=== PATIENT | female | born 1975 | race Asian ===

== ENCOUNTER → 2020-08-06 14:18 | Outpatient (CLI) | payer OTHER, SELFPAY ==
[2020-08-06 15:45] LABS: Free T4, Direct Thyroxine 1.85 ng/dL (0.78-2.19)
[2020-08-06 16:00] LABS: Thyroid Stimulating Hormone < 0.015 uIU/mL (0.47-4.68)
[2020-08-12 02:00] LABS: Thyroglobulin Level <2.0 ng/mL (.)
== END ==
PROVIDERS: PCP Family Medicine; Referring Provider Family Medicine; Visit Provider Family Medicine
DX: C73 Malignant neoplasm of thyroid gland (principal); E03.9 Hypothyroidism, unspecified
CPT/HCPCS: 36415; 84432; 84439; 84443

== ENCOUNTER → 2021-05-21 08:00 | Outpatient (CLI) | payer OTHER, SELFPAY ==
--- NOTE | 2021-05-21 08:01 | DI.US.S_ITS ---
PROCEDURE: US THYROID INDICATIONS: THYROID TECHNIQUE: Real-time scanning was performed of the thyroid gland, with image documentation. COMPARISON: Outside Facility, [facility], US THYROID/NECK, 07/22/2019, 8:31. FINDINGS: Prior total thyroidectomy. No residual thyroid or tumoral recurrence seen within the thyroid beds bilaterally. There are bilateral morphologically normal appearing lymph nodes in the right and left neck, largest measuring up to roughly 6 mm. IMPRESSION: 1. No residual thyroid or tumoral recurrence seen within the thyroid beds bilaterally. 2. Normal lymph nodes appearing similar to prior report. Dictated by: Olu Guzman [facility] Interpreted: Krzysztof Perez MD on 05/21/2021 at 9:50 Transcribed by: DANA on 05/21/2021 at 9:53 Approved by: Krzysztof Perez M.D. on 05/21/2021 at 10:39
== END ==
PROVIDERS: PCP Family Medicine; Referring Provider Family Medicine; Visit Provider Family Medicine
DX: C73 Malignant neoplasm of thyroid gland (principal)
CPT/HCPCS: 76536

== ENCOUNTER → 2021-05-28 11:38 | Outpatient (CLI) | payer OTHER, SELFPAY ==
[2021-05-28 12:24] LABS: Alanine Aminotransferase 32 IU/L (<35); Albumin 4.6 g/dL (3.5-5.0); Albumin Globulin Ratio 1.5 (1.0-2.8); Alkaline Phosphatase 61 U/L (38-126); Aspartate Aminotransferase 35 IU/L (14-36); Bilirubin Total 0.5 mg/dL (0.2-1.3); Blood Urea Nitrogen 11 mg/dL (7-17); Calcium 9.6 mg/dL (8.4-10.2); Carbon Dioxide 28 mmol/L (22-32); Chloride 105 mmol/L (98-107); Estimated Glomerular Filt Rate > 60.0 mL/min (>60); Glucose 95 mg/dL (70-100); HEMOLYSIS 15 (0-50); Potassium 4.5 mmol/L (3.4-5.1); Sodium 140 mmol/L (137-145); Total Protein 7.6 g/dL (6.3-8.2)
[2021-05-28 12:42] LABS: Free T4, Direct Thyroxine 0.98 ng/dL (0.78-2.19)
[2021-05-28 12:56] LABS: Thyroid Stimulating Hormone 0.076 uIU/mL (0.47-4.68)
== END ==
PROVIDERS: PCP Family Medicine; Referring Provider Family Medicine; Visit Provider Family Medicine
DX: E03.9 Hypothyroidism, unspecified (principal)
CPT/HCPCS: 36415; 80053; 84439; 84443

== ENCOUNTER → 2021-12-09 14:50 | Outpatient (CLI) | payer OTHER, SELFPAY ==
[2021-12-09 17:04] LABS: COVID19 -Nasal RAPID Negative (Negative)
== END ==
PROVIDERS: PCP Family Medicine; Visit Provider Obstetrics & Gynecology
DX: Z01.812 Encounter for preprocedural laboratory examination (principal); Z20.822 Contact with and (suspected) exposure to COVID-19
CPT/HCPCS: 87635

== ENCOUNTER 2021-12-10 14:12 | Day surgery (SDC) | payer OTHER, SELFPAY ==
[2021-12-06 08:31] VITALS: BMI 25.2
[2021-12-10 15:03] VITALS: BP 130/90; PULSE 47; RESP 20; TEMP 36.9; O2SAT 100; BMI 25.2
[2021-12-10] MEDS: LACTATED RINGERS 1,000 ML 42 ML IV (15:21)
--- NOTE | 2021-12-10 16:29 | PM.PREOP ---
Pre-operative Note COVID-19 COVID-19 status: Negative Result date/Date tested (Pos, Neg/Pending): 12/09/21 Criteria for continued procedure: Non-surgical alternatives not available or appropriate per current SOC Interval Note History & Physical reviewed/Exam performed by Physician: Yes Changes to H&P: No
--- NOTE | 2021-12-10 17:27 | SUR.OPER ---
Lithotomy on padded OR bed, head on pillow, arms secured on padded arm boards at <90 degrees abduction. Legs secured in padded yellow fins stirrups.
[2021-12-10 18:21] VITALS: BP 131/48; PULSE 83; RESP 16; O2SAT 100
--- NOTE | 2021-12-10 18:23 | P.OP_ITS ---
Operative Date/Time/Diagnoses Date of procedure: 12/10/21 Time of procedure: 18:24 Pre-op diagnosis: retained Mirena IUD Post-op diagnosis: same Procedure & Clinicians Procedure: diagnostic hysteroscopy, removal of embedded Mirena IUD, replacement of Mirena IUD Same procedure as scheduled: Yes Indications: Retained Mirena IUD Surgeon: Marnie Marroquin Diabetic Educator: Teresa Beverly Anesthesia Type: MAC +/- Operative Notes Findings: Mirena IUD with arms embedded in myometrium. Normal vulva, vagina, cervix. Otherwise normal endometrium. Specimen(s): none sent Estimated Blood Loss (mL): 0 Procedure in detail: After informed consent was obtained, the patient was placed in the dorsal lithotomy position. She was prepped and draped in the usual sterile fashion, and the bladder emptied via straight cath. A speculum was placed in the patient's vagina, and the anterior lip of the cervix grasped with a single toothed tenaculum. Hegar dilators were used to dilate the cervix to 8mm, with minimal pressure necessary. The diagnostic hysteroscope was inserted using NS as distention fluid, and the IUD was visible with the arms embedded in the upper posterior wall of the uterus. The hysteroscope was removed and the polyp forceps inserted and used to grasp the IUD. With firm traction, the IUD was removed i ntact. The flexi sound was used to measure the uterus to 6cm. The new Mirena was withdrawn into the insertion device, gently inserted through the cervix, and the IUD advanced gently to the fundus. This was withdrawn 1cm, and the IUD was deployed. The IUD was gently again advanced to the fundus by feel. The insertion device was removed, and the strings trimmed to 2cm. The tenaculum was removed with spontaneous hemostasis at the tenaculum sites, and the speculum removed. The patient tolerated the procedure well and was transferred to the PACU in stable condition. Fluid deficit: 50ccs NS IVF: 600ccs LR Complications: none Post-operative Condition: stable Disposition: PACU Plan for aftercare: Discharge with routine precautions
--- NOTE | 2021-12-10 18:24 | SUR.PHASEII ---
Pt bypassed phase [address] Shah[address]
[2021-12-10 18:26] VITALS: BP 125/58; PULSE 65; RESP 16; TEMP 36.6; O2SAT 100
[2021-12-10 18:38] VITALS: BP 135/58; PULSE 74; RESP 15; TEMP 36.3; O2SAT 100
== END 2021-12-10 18:52 | disposition home or self-care (01) ==
PROVIDERS: PCP Family Medicine; Referring Provider Obstetrics & Gynecology; Visit Provider Obstetrics & Gynecology
PROC: 0UDB8ZZ Extraction of Endometrium, Via Natural or Artificial Opening Endoscopic (ICD-10-PCS; CPT 58558; principal; 2021-12-10 15:30)
DX: Z30.433 Encounter for removal and reinsertion of intrauterine contraceptive device (principal); T83.89XA Other specified complication of genitourinary prosthetic devices, implants and grafts, initial encounter
CPT/HCPCS: 58300; 58301; J2704; J3010; J7298